=== PATIENT | female | born 1960 | race Caucasian/White ===

== ENCOUNTER 2018-06-26 15:35 | Emergency (ER) | payer MEDICAID ==
[~2018-06-26] VITALS: Ht 165.1 cm; Wt 91.0 kg
[2018-06-27] MEDS ORDERED: IBUPROFEN 800MG TABLET PO ONE (00:15)
[2018-06-27] MEDS ORDERED: PREDNISONE 20MG TABLET PO ONE (00:15)
[2018-06-27] MEDS ORDERED: ALBUTEROL (0.5%) 2.5MG/0.5ML NEB HHN ONE (00:15)
[2018-06-27] MEDS ORDERED: ACETAMINOPHEN 325MG TABLET PO ONE (00:45)
[2018-06-27 02:33] VITALS: BP 129/67
== END 2018-06-27 02:37 | disposition home or self-care (01) ==
LOC: ER 15:35
DX: J40 Bronchitis, not specified as acute or chronic (principal); I12.9 Hypertensive chronic kidney disease with stage 1 through stage 4 chronic kidney disease, or unspecified chronic kidney disease; N18.9 Chronic kidney disease, unspecified; Z87.01 Personal history of pneumonia (recurrent); Z88.5 Allergy status to narcotic agent
CPT/HCPCS: 71045; 99283; J7512; Z7610

== ENCOUNTER 2018-07-05 02:51 | Inpatient (IN) | payer MEDICAID, OTHER ==
[~2018-07-05] VITALS: Ht 152.4 cm; Wt 97.5 kg
[2018-07-05] MEDS ORDERED: KETOROLAC 30MG/ML VIAL IV STA (03:16)
[2018-07-05 03:35] LABS: BASOPHILS % 0.9 % (0.0-2.0); EOSINOPHILS % 2.2 % (0.0-5.0); HEMATOCRIT. 41.2 % (36.0-48.0); HEMOGLOBIN. 13.5 g/dL (12.0-16.0); LYMPHOCYTES % 19.9 % (20.0-50.0); MEAN CORPUSCULAR HEMOGLOBIN 27.2 pg (28.0-32.0); MEAN CORPUSCULAR VOLUME 82.9 fL (81.0-99.0); MEAN PLATELET VOLUME 7.3 fl (7.4-10.4); MONOCYTES % 8.5 % (2.0-8.0); NEUTROPHILS % 68.5 % (40.0-76.0); PLATELET 225 x1000/uL (130-400); RED BLOOD CELL COUNT 4.97 mill/uL (4.2-5.4); RED CELL DISTRIBUTION WIDTH 15.3 % (11.6-14.6)
[2018-07-05] MEDS: NITROGLYCERIN 0.4MG TABLET SL SL PRN ×2 (03:35→03:59)
[2018-07-05 03:43] LABS: CHLORIDE 103 mEq/L (98-107)
[2018-07-05 03:44] LABS: INR 2.1; PARTIAL THROMBOPLASTIN TIME 36.9 sec (23.4-31.0); PROTHROMBIN TIME 20.8 sec (9.1-11.1)
[2018-07-05] MEDS ORDERED: FUROSEMIDE 40MG/4ML VIAL IVP SCH (04:15)
[2018-07-05] MEDS ORDERED: ENOXAPARIN 80MG/0.8ML SYR SUBCUT ONE (06:45)
[2018-07-05] MEDS ORDERED: ACETAMINOPHEN 500MG TABLET PO ONE (07:00)
[2018-07-05] MEDS ORDERED: METOPROLOL TARTRATE 5MG/5ML VIAL IV ONE (08:45)
[2018-07-05] MEDS ORDERED: METOPROLOL TARTRATE 5MG/5ML VIAL IV NR (09:00)
[2018-07-05] MEDS ORDERED: MAGNESIUM/ALUMINUM HYDROXIDE/SIMETHICONE 30ML UDC PO PRN (09:45)
[2018-07-05] MEDS ORDERED: GUAIFENESIN 200MG/10ML SUGAR FREE UDC PO PRN (09:45)
[2018-07-05] MEDS ORDERED: NA PHOS,M-B/NA PHOS,DI-BA ENEMA 118ML PR PRN (09:45)
[2018-07-05] MEDS ORDERED: IPRATROPIUM/ALBUTEROL 0.5-3(2.5)MG/3ML NEB INH PRN (09:45)
[2018-07-05] MEDS ORDERED: DOCUSATE SODIUM 100MG CAPSULE PO PRN (09:45)
[2018-07-05] MEDS ORDERED: KETOROLAC 30MG/ML VIAL IV PRN (09:45)
[2018-07-05] MEDS ORDERED: NITROGLYCERIN 0.4MG TABLET SL SL PRN (09:45)
[2018-07-05] MEDS ORDERED: CLONIDINE 0.1MG TABLET PO PRN (09:45)
[2018-07-05 12:00] VITALS: BP 162/91
[2018-07-05] MEDS: ACETAMINOPHEN 325MG TABLET PO PRN (12:05)
[2018-07-05 12:28] VITALS: BP 162/91
[2018-07-05] MEDS: ONDANSETRON HCL 4MG/2ML INJ IV PRN ×2 (14:33→22:18)
[2018-07-05] MEDS: KETOROLAC 15MG/ML VIAL IV PRN ×2 (15:59→22:18)
[2018-07-05 16:23] VITALS: BP 155/83
[2018-07-05 17:17] LABS: CREATINE KINASE 42 IU/L (26-192)
[2018-07-05 17:18] LABS: CREATINE KINASE MB FRACTION 1.2 ng/mL (0.5-3.6)
[2018-07-05] MEDS ORDERED: SODIUM CHLORIDE 0.9% 1,000 ML IV NR (17:30)
[2018-07-05] MEDS ORDERED: ACETAMINOPHEN 325MG TABLET PO SCH (17:45)
[2018-07-05] MEDS ORDERED: WARFARIN SODIUM 3MG TABLET PO SCH (18:00)
[2018-07-05] MEDS: SUCRALFATE 1 G/10 ML UDC PO SCH ×2 (18:05→22:58)
[2018-07-05] MEDS ORDERED: DEXTROSE 50% WATER 50ML SYRINGE IV PRN (18:15)
[2018-07-05] MEDS: DILTIAZEM HCL 60MG TABLET PO SCH (18:27)
[2018-07-05 20:00] VITALS: BP 168/85
[2018-07-05] MEDS ORDERED: ZOLPIDEM TARTRATE 5MG TABLET PO PRN (21:00)
[2018-07-05 21:06] LABS: CLARITY URINE CLOUDY (CLEAR); COLOR URINE DARK YELLOW (YELLOW); KETONES URINE 1+ (NEGATIVE); LEUKOCYTE ESTERASE URINE TRACE (NEGATIVE); NITRITE URINE NEGATIVE (NEGATIVE); OCCULT BLOOD URINE NEGATIVE (NEGATIVE); PROTEIN URINE TRACE (NEGATIVE); SPECIFIC GRAVITY URINE 1.025 (1.005-1.030)
[2018-07-05 21:21] LABS: *AMPHETAMINES SCREEN URINE NEGATIVE (NEGATIVE); *BARBITURATES SCREEN URINE NEGATIVE (NEGATIVE); *BENZODIAZEPINES SCREEN URINE NEGATIVE (NEGATIVE); *COCAINE SCREEN URINE NEGATIVE (NEGATIVE)
[2018-07-05 21:22] LABS: CANNABINOID URINE SCREEN NEGATIVE (NEGATIVE); METHADONE URINE SCREEN NEGATIVE (NEGATIVE); OPIATES URINE SCREEN PRESUMTIVE POSITIVE (NEGATIVE); PHENCYCLIDINE URINE SCREEN NEGATIVE (NEGATIVE)
[2018-07-05] MEDS: INSULIN LISPRO 100 UNITS/ML SUBCUT SCH (21:55)
[2018-07-05] MEDS: BLOOD SUGAR DIAGNOSTIC STRIP TEST SCH (21:55)
[2018-07-05] MEDS: FAMOTIDINE 20MG TABLET PO SCH (22:58)
[2018-07-06] VITALS: BP 164/96
[2018-07-06] MEDS: DILTIAZEM HCL 60MG TABLET PO SCH ×3 (00:23→12:29)
[2018-07-06 01:16] LABS: CREATINE KINASE 31 IU/L (26-192)
[2018-07-06 04:00] VITALS: BP 144/63
[2018-07-06] MEDS: METOCLOPRAMIDE 10MG/10 ML UDC PO SCH ×2 (06:28→12:29)
[2018-07-06] MEDS: SUCRALFATE 1 G/10 ML UDC PO SCH ×2 (06:28→12:29)
[2018-07-06] MEDS: ACETAMINOPHEN 325MG TABLET PO PRN ×2 (06:42→12:30)
[2018-07-06] MEDS: BLOOD SUGAR DIAGNOSTIC STRIP TEST SCH ×2 (06:42→12:13)
[2018-07-06 06:57] LABS: INR 2.7; PROTHROMBIN TIME 26.5 sec (9.1-11.1)
[2018-07-06] MEDS: INSULIN LISPRO 100 UNITS/ML SUBCUT SCH ×2 (07:50→12:13)
[2018-07-06] MEDS: FAMOTIDINE 20MG TABLET PO SCH (08:41)
[2018-07-06] MEDS ORDERED: ASPIRIN 325MG EC TABLET PO SCH (09:00)
[2018-07-06 09:06] VITALS: BP 120/75
[2018-07-06 12:03] VITALS: BP 144/69
[2018-07-06 13:31] VITALS: BP 138/69
[2018-07-06 14:29] VITALS: BP 138/69
[2018-07-06] MEDS: KETOROLAC 15MG/ML VIAL IV PRN (14:29)
[2018-07-06] MEDS ORDERED: WARFARIN SODIUM 2MG TABLET PO NR (18:00)
== END 2018-07-06 15:50 | disposition home or self-care (01) | DRG 241 ==
LOC: ER 02:51 → 6WST 04:06 → CANRESERV 07:18 → ENRESERV 07:18
PROVIDERS: ADMIT Internal Medicine; ATTEND Internal Medicine
DX: K29.70 Gastritis, unspecified, without bleeding (principal); K31.84 Gastroparesis; E11.43 Type 2 diabetes mellitus with diabetic autonomic (poly)neuropathy; I48.91 Unspecified atrial fibrillation; R07.89 Other chest pain; I10 Essential (primary) hypertension; J45.909 Unspecified asthma, uncomplicated; Z79.01 Long term (current) use of anticoagulants; Z88.8 Allergy status to other drugs, medicaments and biological substances; Z79.4 Long term (current) use of insulin
CPT/HCPCS: 36415; 71045; 80061; 80305; 82550; 82553; 82962; 83036; 83880; 84484; 93005; 93970; 96374; 99285; J1650; J1885; J1940; J2405; J8597

== ENCOUNTER 2020-04-20 07:41 | Emergency (ER) | payer MEDICAID ==
[~2020-04-20] VITALS: Ht 162.6 cm; Wt 82.0 kg
[2020-04-20] MEDS ORDERED: WARFARIN (08:13)
[2020-04-20] MEDS ORDERED: ASPIRIN 81MG TABLET PO ONE (09:00)
[2020-04-20 10:32] LABS: BASOPHILS % 0.6 % (0.0-2.0); EOSINOPHILS % 3.7 % (0.0-5.0); HEMATOCRIT. 35.2 % (36.0-48.0); HEMOGLOBIN. 11.1 g/dL (12.0-16.0); LYMPHOCYTES % 11.1 % (20.0-50.0); MEAN CORPUSCULAR HEMOGLOBIN 23.9 pg (28.0-32.0); MEAN CORPUSCULAR VOLUME 75.8 fL (81.0-99.0); MEAN PLATELET VOLUME 7.5 fl (7.4-10.4); MONOCYTES % 4.7 % (2.0-8.0); NEUTROPHILS % 79.9 % (40.0-76.0); PLATELET 313 x1000/uL (130-400); RED BLOOD CELL COUNT 4.64 mill/uL (4.2-5.4); RED CELL DISTRIBUTION WIDTH 16.5 % (11.6-14.6)
[2020-04-20 10:46] LABS: CHLORIDE 103 mEq/L (98-107)
[2020-04-20] MEDS ORDERED: IBUPROFEN 600MG TABLET PO NR (11:30)
[2020-04-20] MEDS ORDERED: ACETAMINOPHEN 325MG TABLET PO ONE (11:30)
[2020-04-20 13:30] VITALS: BP 134/84
== END 2020-04-20 14:20 | disposition home or self-care (01) ==
LOC: ER 07:41
DX: R07.89 Other chest pain (principal); I48.91 Unspecified atrial fibrillation; I10 Essential (primary) hypertension; Z88.6 Allergy status to analgesic agent
CPT/HCPCS: 36415; 71045; 80053; 83880; 84484; 85025; 93005; 99285